=== PATIENT | male | born 1945 | race Caucasian/White ===

== ENCOUNTER 2024-12-29 18:47 | Observation (INO) | payer MEDICARE, OTHER ==
[2024-12-29] VITALS (21 sets, daily range): BP systolic 96–145; BP diastolic 62–80
--- NOTE | 2024-12-29 18:47 | NUR ---
PATIENT TO ER ROOM 1 VIA EMS.
[2024-12-29] MEDS ORDERED: PROMETHAZINE HCL 25 MG/ML AMP IM ONE (18:55)
--- NOTE | 2024-12-29 19:01 | NUR ---
BROUGHT BACK TO ROOM WITH PATIENT. HX OBATIANED FROM .
[2024-12-29] MEDS ORDERED: MECLIZINE HCL 25 MG/TAB PO ONE (19:10)
[2024-12-29 19:22] LABS: BASO% 0.9 % (0-3); EOS% 4.8 % (0-8); HEMATOCRIT 39.3 % (39.0-50.0); HEMOGLOBIN 12.4 g/dl (14.0-18.0); IMMATURE GRANULOCYTES 0.5 % (0.0-5.0); LYMPH% 22.4 % (15-41); MEAN CORPUSCULAR HGB 28.7 pG CALC (26.0-32.0); MEAN CORPUSCULAR HGB CONC 31.6 g/dL CAL (32.0-36.0); MONO% 8.6 % (2-13); NEUT# 2.77 thou/uL (1.82-7.42); NEUT% 62.8 % (42-76); RED BLOOD COUNT 4.32 mill/uL (4.70-6.10); RED CELL DISTRI WIDTH 13.1 % (11.5-15.5)
[2024-12-29 19:33] LABS: CHOLESTEROL HDL RATIO 2.3 (<4.4 (CALC))
[2024-12-29 19:34] LABS: ALBUMIN 3.7 g/dL (3.2-5.0); ALKALINE PHOSPHATASE 66 u/l (38-126); ANION GAP 11 (6-22 (CALC)); BILIRUBIN, TOTAL 0.6 mg/dL (0.2-1.3); BUN 20 mg/dL (8-23); BUN/CREATININE RATIO 25 (12-20 (CALC)); CARBON DIOXIDE 27 mmol/l (22-30); CHLORIDE 104 mmol/l (95-108); CREATININE 0.8 mg/dL (0.7-1.3); ESTIMATED GFR 91 ML/MIN (>=90 (CALC)); INTERNATIONAL NORMALIZED RATIO 1.1 RATIO (0.7-1.3); POTASSIUM 3.8 mmol/l (3.5-5.1); SGOT/AST 30 u/l (19-48); SODIUM 138 mmol/l (137-146)
[2024-12-29 19:37] LABS: PROTHROMBIN TIME 12.2 SECONDS (9.0-12.5)
[2024-12-29] MEDS ORDERED: LEVOTHYROXIN25 MC1 PO (20:19)
[2024-12-29] MEDS ORDERED: METFORMIN HCL1000 MG PO (20:19)
[2024-12-29] MEDS ORDERED: TAMSULOSIN0.4 MG PO (20:20)
[2024-12-29] MEDS ORDERED: ACETAMINOPHEN 325 MG/TAB PO PRN (20:20)
[2024-12-29] MEDS ORDERED: ONDANSETRON 4 MG/TAB ODT SL PRN (20:20)
[2024-12-29] MEDS ORDERED: MELATONIN 3 MG/TAB PO PRN (20:20)
[2024-12-29] MEDS ORDERED: ATORVASTATIN CA10 MG PO (20:21)
[2024-12-29] MEDS ORDERED: ATORVASTATIN CALCIUM 40 MG/TAB PO SCH (21:00)
[2024-12-29] MEDS ORDERED: ENOXAPARIN SODIUM 40 MG/0.4 ML SYR SC SCH (21:00)
[2024-12-29] MEDS ORDERED: MECLIZINE HCL 25 MG/TAB PO SCH (21:00)
[2024-12-29 21:13] LABS: URINE BILIRUBIN - DIPSTICK Negative (NEGATIVE); URINE BLOOD DIPSTICK Negative (NEGATIVE); URINE COLOR Yellow; URINE GLUCOSE - DIPSTICK Negative (NEGATIVE); URINE KETONE Negative (NEGATIVE); URINE LEUK ESTERASE Negative (NEGATIVE); URINE NITRITE - DIPSTICK Negative (Negative); URINE PH 5.5 (4.5-8.0); URINE PROTEIN - DIPSTICK Negative (NEG-TRACE); URINE SPECIFIC GRAVITY 1.015
--- NOTE | 2024-12-29 22:25 | NUR ---
REPORT GIVEN TO ICU
--- NOTE | 2024-12-29 22:45 | NUR ---
Patient arrived at the unit at this time via wheelchair accompanied by ED nurse and his . Telelmetry monitor connect. Patient is bradycardic, heart rate 49. ED nurse said patient was like that since admission. When ask, and patient denied any knowledge of low heart rate prior this admission. Patient report feeling dizzy when standing up. Orthostatic BP test performed. The results are: Lying flat after 5 minutes - HR 49 BP 127/78 Sitting 1 minute - HR 55 BP 135/73 Standing 5 minutes - HR 63 BP 107/72 Patient became very diaphoretic and dizzy when standing up.
--- NOTE | 2024-12-29 22:45 | NUR ---
PATIENT TRASNPORTED TO ICU BED 6
[2024-12-30] VITALS (17 sets, daily range): BP systolic 115–142; BP diastolic 62–81
--- NOTE | 2024-12-30 | NUR ---
Patient remains bradycardic low 50s. Patient sleeping. No changes in reasessment
--- NOTE | 2024-12-30 02:10 | NUR ---
Patient sleeping. No changes in reassesment
--- NOTE | 2024-12-30 04:00 | NUR ---
Patient used call light to ask RN for a phone so he could call his . Unit cordless phone provided to patient. At this time, no change in assessment. VS within parameters
--- NOTE | 2024-12-30 06:16 | NUR ---
Patient reports feeling his BS going down. Per patient "my took my phone home and I cant check what it is. do you have snack?" Blood sugar checked = 91. Snacks offered and accepted by patient. VS within parameters. No change in assesmsnet
[2024-12-30 06:48] LABS: ALBUMIN 3.3 g/dL (3.2-5.0); BILIRUBIN, TOTAL 0.7 mg/dL (0.2-1.3); CREATININE 0.8 mg/dL (0.7-1.3); POTASSIUM 4.1 mmol/l (3.5-5.1); TOTAL PROTEIN 5.5 g/dL (6.3-8.2)
[2024-12-30 06:57] LABS: EOS% 4.1 % (0-8); HEMATOCRIT 40.2 % (39.0-50.0); HEMOGLOBIN 12.7 g/dl (14.0-18.0); IMMATURE GRANULOCYTES 0.6 % (0.0-5.0); LYMPH% 24.4 % (15-41); MEAN CELL VOLUME 91.6 fL CALC (80.0-100.0); MEAN CORPUSCULAR HGB 28.9 pG CALC (26.0-32.0); MEAN CORPUSCULAR HGB CONC 31.6 g/dL CAL (32.0-36.0); MONO% 8.8 % (2-13); NEUT# 2.97 thou/uL (1.82-7.42); NEUT% 61.1 % (42-76); RED BLOOD COUNT 4.39 mill/uL (4.70-6.10)
[2024-12-30] MEDS ORDERED: SODIUM CHLORIDE 0.9% 1,000 ML IV PRN (07:55)
--- NOTE | 2024-12-30 08:00 | NUR ---
REPORT RECEIVED FROM NIGHT NURSE. PT IS LYING IN BED, ORIENTED TO PERSON/MONTH BUT NOT YEAR OR PLACE. SPOUSE AT BEDSIDE. LUNGS CLEAR; ON RA. NO COUGH OR SOB NOTED. HEART SOUNDS S1S2; PT IS SINUS KAUR 50'S ON MONITOR. PER NIGHT NURSE, PT WAS POSITIVE FOR ORTHOSTATIC BP. BS ACTIVE; NO TENDERNESS. PULSES STRONG ALL EXTREMETIES. SKIN W/D/I. AFEBRILE. REPOSITIONED IN BED AND GIVEN BREAKFAST TRAY. SPOUSE AT BEDSIDE. NIH SCORE OF 0. CALL LIGHT AND BELONGINGS WITHIN REACH, VSS.
[2024-12-30] MEDS ORDERED: LORazepam 2 MG/ML IV SCH (08:30)
[2024-12-30] MEDS ORDERED: ASPIRIN 81 MG/TAB PO SCH (09:00)
[2024-12-30] MEDS ORDERED: cefTRIAXone SODIUM 2 GM in SODIUM CHLORIDE 0.9% 100 ML IV SCH (09:00)
--- NOTE | 2024-12-30 11:47 | NUR ---
PT BACK FROM MRI. WAS MEDICATED PRIOR TO EXAM, TAKEN DOWN BY WHEELCHAIR. PT TOLERATED WELL AND IS NOW RESING IN BED. DENIES ANY NEEDS AT THIS TIME. CALL LIGHT IN REACH. VSS.
[2024-12-30] MEDS ORDERED: TAMSULOSIN HCL 0.4 MG CAP PO SCH (15:42)
--- NOTE | 2024-12-30 15:45 | NUR ---
NO CHANGES TO PT STATUS. PT SPOUSE REMAINS ST BEDSIDE. NO CHANGES O NIH, SCORE OF 0. DRESSING ON IV CHANGED. CALL LIGHT AND BELONGINGS WITHIN REACH, VSS.
[2024-12-30] MEDS ORDERED: MECLIZINE HCL 25 MG/TAB PO PRN (16:25)
--- NOTE | 2024-12-30 17:45 | NUR ---
pt taken to med-surg unit by wheelchair with all belongings in good condition. pt spouse aware of new room number.
--- NOTE | 2024-12-30 20:10 | NUR ---
awake. no c/o dizziness. carpenter helper hardwood flooring shows sinus jt. ivf infusing well. voids per bathroom. fall precautions cont.
--- NOTE | 2024-12-31 00:01 | NUR ---
cardiac cath technician shows sinus jt.
[2024-12-31 00:13] VITALS: BP 122/61
[2024-12-31 00:30] VITALS: BP 122/61
--- NOTE | 2024-12-31 04:06 | NUR ---
awake. asked pt his last bm. he said yesterday.
--- NOTE | 2024-12-31 05:00 | NUR ---
remains awake. requested to ambulate in hallway because his rt knee he had surgery on in september is "starting to stiffen up." pt denies dizziness. up in room then hallway.
[2024-12-31 05:10] VITALS: BP 141/57; BP 155/77; BP 158/65
[2024-12-31] MEDS ORDERED: LEVOTHYROXINE SODIUM 25 MCG/TAB PO SCH (06:00)
--- NOTE | 2024-12-31 06:52 | NUR ---
pt sugar was 101 @0615
[2024-12-31 07:06] LABS: EOS% 5.3 % (0-8); HEMATOCRIT 38.7 % (39.0-50.0); HEMOGLOBIN 12.3 g/dl (14.0-18.0); IMMATURE GRANULOCYTES 0.5 % (0.0-5.0); LYMPH% 25.3 % (15-41); MEAN CELL VOLUME 91.5 fL CALC (80.0-100.0); MEAN CORPUSCULAR HGB 29.1 pG CALC (26.0-32.0); MEAN CORPUSCULAR HGB CONC 31.8 g/dL CAL (32.0-36.0); MONO% 8.4 % (2-13); NEUT# 2.5 thou/uL (1.82-7.42); NEUT% 59.5 % (42-76); RED BLOOD COUNT 4.23 mill/uL (4.70-6.10)
[2024-12-31 07:15] VITALS: BP 156/77
--- NOTE | 2024-12-31 07:15 | NUR ---
REPORT RECEIVED FROM KIRBY WITH PT SITTING AT SIDE OF BED. [place] AND UPDATED ON POC. NO COMPLAINTS. CALL LIGHT IN REACH. WILL MONITOR.
[2024-12-31 07:19] LABS: BILIRUBIN, TOTAL 0.6 mg/dL (0.2-1.3); CREATININE 0.9 mg/dL (0.7-1.3); MAGNESIUM 1.8 mg/dL (1.6-2.3); TOTAL PROTEIN 5.2 g/dL (6.3-8.2)
[2024-12-31 11:45] VITALS: BP 138/65
--- NOTE | 2024-12-31 12:00 | NUR ---
PT REMAINS SITTING AT SIDE OF BED WITH AT BEDSIDE WITHOUT CHANGES. NO COMPLAINTS AND AWAITING DISCHARGE HOME.
[2024-12-31] MEDS ORDERED: ASPIRIN81 MG PO (12:27)
[2024-12-31] MEDS ORDERED: MECLIZINE25 MG PO (12:28)
--- NOTE | 2024-12-31 13:20 | NUR ---
PT RECEIVED APPROVAL FOR DISCHARGE HOME. PRINTED D/C INSTRUCTIONS REVIEWED WITH AND PT. TELE REMOVED AND IV TAKEN OUT WITH CATH TIP INTACT. PT DECLINED W/C AND AMBULATED OUT ACCOMPANIED BY HIS .
--- NOTE | 2024-12-31 13:26 | NUR ---
Discharged to: Home Discharged via: Ambulatory Accompanied by: spouse D/C Condition: stable Diet: Cardiac Diet modification: no added salt Activity: As tolerated Home Health: NONE Follow up appointment: Special instructions: Medications: SEE MEDICATION RECONCILIATION FORM Prescriptions Given: Please notify your physician if you received either one of these vaccinations: Influenza Vaccine - Date: Pneumococcal Vaccine - Date: Patient Education Materials Provided: - Food and Drug Interaction Guide No - Anticoagulation Education Booklet Contains the following information: 1. Compliance issues 2. Dietary advice 3. Follow up monitoring 4. Potential for adverse drug reactions and interactions Yes - Smoking Cessation Booklet IF SYMPTOMS WORSEN, OR IF YOU HAVE ADDITIONAL QUESTIONS, PLEASE CONTACT YOUR PERSONAL PHYSICIAN OR SEEK EMERGENCY CARE. CALL YOUR PHYSICIAN IF YOU DO NOT GET RELIEF FROM THE PAIN MEDICATIONS PRESCRIBED, OR IF THE INTENSITY OF PAIN INCREASES, OR IF PAIN IS INTERFERING WITH ACTIVITY OR REST. IF YOU SMOKE, YOU NEED TO QUIT. IT IS GOOD FOR YOU AND EVERYONE AROUND YOU! Your physician and [facility] care about you and your health. The facts are clear. Smoking causes 1 out of 5 deaths in the [place] each year. It is the major preventable cause of emphysema, lung cancer, chronic bronchitis, heart disease and stroke. Quitting is one of the best things you can ever do for yourself and those you love. What better time to quit than now! You've already been cigarette free during your stay. Studies have shown that the first 48 hours of quitting are the toughest. Just a few of the benefits your body begins to experience are blood pressure returns to normal, the carbon monoxide level in your blood drops to normal, your chance of heart attack decreases, and your ability to smell and taste is enhanced. Here are some resources that you may find helpful: [place] [employer] [employer] www.lungusa.org www.cancer.org [place] [employer] [place] [employer] (Tobacco Prevention and Control Program) www.americanheart.org www.gurmeet.[place] Finally don't forget that your doctor may be able to help you. Whichever method you choose will be good for you. IF YOU HAVE A DIAGNOSIS OF CONGESTIVE HEART FAILURE, THERE ARE SEVERAL ADDITIONAL INSTRUCTIONS FOR YOU TO FOLLOW UPON DISCHARGE FROM THE HOSPITAL. Weigh yourself every day and if weight gain is greater than 2 pounds in a day, call your physican. If you experience worsening symptoms such as: Problems with breathing or shortness of breath Ankle/foot/leg swelling Unexplained weight gain greater than 2 pounds Call your physician or come to the emergency room. IF YOU HAVE A DIAGNOSIS OF STROKE, THERE ARE SEVERAL ADDITIONAL INSTRUCTIONS FOR YOU TO FOLLOW: A stroke occurs when something happens to interrupt the steady flow of blood to the brain, like a clot or a burst in a blood vessel. Brain cells quickly begin to . These INCREASE your chance of having a STROKE: * Smoking * High blood pressure * Diabetes * Obesity WARNING SIGNS OR SYMPTOMS: * Sudden weakness on one side of body. * Sudden confusion, trouble speaking or understanding. * Sudden trouble seeing. * Sudden trouble walking or loss of balance. * Sudden severe headache with no known cause. CALL At Any Sign of Stroke. You can beat a stroke. Disabilities can be prevented or limited, but you have must go to the Emergency Department immediately. Go in an Ambulance. Save Time. Be Seen Faster! If you were admitted to the hospital for a stroke After DISCHARGE you must: * Keep ALL follow up appointments. * Take your medications as ordered by your doctor. * Do not take any other drugs without checking with your doctor first. * Do not drive unless your doctor says it is okay. * Call your doctor with any questions or concerns. IF YOU WERE DISCHARGED ON COUMADIN/WARFARIN ANTICOAGULATION THERAPY, THERE ARE SEVERAL ADDITIONAL INSTRUCTIONS FOR YOU TO FOLLOW: Anticoagulants are medications that help prevent blood clots. They are often prescribed for people with certain heart, lung and blood vessel diseases to help prevent heart attacks and strokes. IMPORTANT Anticoagulation medications have been used for many years, but it can be difficult to manage. That's because many factors can affect how they work-including small changes in dose or dose timing, what you eat or drink, other medications and stress. You and your doctor must work closely together to manage this important medication. * Take your medicine EXACTLY as instructed by your doctor. * You must have your blood drawn for PT/INR to monitor your medication. * Do not take any new medications, vitamins or herbal supplements without asking your doctor first. FOODS: * Eat the same amount of foods that contain Vitamin K every day. * Avoid or limit alcohol. * Avoid major changes in diet or notify your doctor first. FOLLOW UP MONITORING: See your physician within one week to monitor your condition. You will need to have blood tests performed to monitor the medication. DRUG INTERACTIONS: * Diet and medications can affect the PT/INR level. * Do not take or discontinue any medication or over the counter medication unless your doctor okays. * Warfarin/Coumadin increases the risk of bleeding. CALL YOUR PHYSICIAN IF: If you notice any signs of increased bleedin. Excessive bruising. 2. Abnormal bleeding from nose or gums. 3. [place], red or dark brown urine. 4. Minor bleeding or bright red blood from the bowel. CALL 911 OR GO TO THE HOSPITAL IF: 1. You have black tarry stools. 2. Sudden dizziness, faintness or weakness. 3. Cold or numbness in arm or leg. 4. Sudden chest pain. 5. Trouble talking or moving one side of body. 6. Coughing or vomiting bright red blood. 7. Severe headache or stomach pain. 8. Serious fall or hit to the head. Visit our website at [email or web address] You are going home today. Depending on your insurance coverage, you may be receiving a bill from the hospital for your hospital stay. If you have any question about your bill, please call the Business Office at [phone] or contact us at our web address: [email or web address]. If applicable, I have received my medication information as recommeded by my provider upon discharge. I have read and understand the above discharge instructions. Pt Signature: Date: Time: Witnessed by: Date: Time: Complete the record of communication to the next provider below. These discharge instructions, including discharge medications, is to be faxed to the next provider at the time of the patient's discharge. ____These instructions faxed to next Provider (Provider Name) on (Date) @ (Time) . ____The second provider involved in patient care following discharge has been faxed this information. These instructions faxed to (Provider-Home Health, Physical Therapy, Agency) on (Date) @ (Time) . OR ____Patient unable/unwilling to verbalize who the next provider of care will be, instructed patient to take these instructions to next appointment with healthcare provider.
== END 2024-12-31 13:24 | disposition home or self-care (01) ==
LOC: ED 18:47 → ED-I 19:19 → ED 20:25 → ICU 20:26 → MS2 12-30 17:30
PROVIDERS: Family Medicine; ADMIT Internal Medicine; ATTEND Internal Medicine
DX: R42 Dizziness and giddiness (principal); R20.2 Paresthesia of skin; E11.9 Type 2 diabetes mellitus without complications; I25.10 Atherosclerotic heart disease of native coronary artery without angina pectoris; N40.0 Benign prostatic hyperplasia without lower urinary tract symptoms; I95.9 Hypotension, unspecified; E03.9 Hypothyroidism, unspecified; H91.90 Unspecified hearing loss, unspecified ear; Z79.84 Long term (current) use of oral hypoglycemic drugs; Z87.440 Personal history of urinary (tract) infections
CPT/HCPCS: G0378; J0696; J1650; J2060; J2550; Q9967